=== PATIENT | female | born 1930 | race Caucasian/White ===

== ENCOUNTER 2016-11-19 18:35 | Inpatient (IN) | payer MEDICARE ==
[~2016-11-19] VITALS: Ht 165.1 cm; Wt 83.4 kg
[2016-11-19 20:19] VITALS: BP 138/73; PULSE 119; RESP 18; TEMP 98; O2SAT 95
[2016-11-19 22:51] LABS: BACTERIA, URINE RARE /hpf; BLOOD, URINE NEG (NEG); COMMENT (UR) CULT NOT INDICATED; CULTURE IF INDICATED CULT NOT INDICATED; GLUCOSE,URINE NEG (NEG); HYALINE CAST, URINE 42 /lpf (RARE); KETONE, URINE NEG (NEG); MUCUS URINE FEW /lpf (OCC); NITRITE,URINE NEG (NEG); PH, URINE 5.5 (5.0-8.5); RENAL EPITHELIAL CELLS <1 /hpf; SQUAMOUS EPITHELIAL CELL URINE 6 /hpf (0-5); URINE COLOR DARK-YELLOW (YELLW/STRAW)
[2016-11-20] VITALS (12 sets, daily range): BP systolic 113–155; BP diastolic 56–80; PULSE 98–155; RESP 17–20; TEMP 97.6–98.1; O2SAT 92–99
[2016-11-20 01:00] LABS: AUTOMATED NEUTROPHIL # 8.9 TH/MM3 (1.8-7.7); BASOPHIL # 0.1 TH/MM3 (0-0.2); BASOPHIL % 0.6 % (0.0-2.0); EOSINOPHIL # 0.1 TH/MM3 (0-0.4); EOSINOPHIL % 0.4 % (0.0-4.0); HEMATOCRIT 34.4 % (35.0-46.0); HEMO FLAGS DIFF FINAL; LYMPH % 17.2 % (9.0-44.0); LYMPHOCYTE # 2.2 TH/MM3 (1.0-4.8); MEAN CELL VOLUME 82.6 FL (80.0-100.0); MEAN CORPUSCULAR HEMOGLOBIN 27.3 PG (27.0-34.0); MEAN CORPUSCULAR HGB CONC 33.1 % (32.0-36.0); NEUT % 69.8 % (16.0-70.0); PLATELET COUNT 389 TH/MM3 (150-450); RED BLOOD COUNT 4.16 MIL/MM3 (4.00-5.30); RED CELL DISTRIBUTION WIDTH 16.2 % (11.6-17.2); WHITE BLOOD COUNT 12.7 TH/MM3 (4.0-11.0)
--- NOTE | 2016-11-20 01:24 | PD ---
HPI Chief Complaint: Psychiatric Symptoms Time Seen by Provider: 01:24 Travel History International Travel<30 days: No Contact w/Intl Traveler<30days: No Traveled to known affect area: No History of Present Illness HPI 86-year-old female came to the emergency room as a Arroyo act from [facility], rapid atrial fibrillation and biventricular lower extremity edema. Patient seems agitated and difficult to get history out of her. She threatened to kill herself by overdosing. Heart rate is in 120s to 130s. Patient has history of atrial fibrillation and is supposed to be on digoxin and Xarelto. Patient is denying any chest pain history. PFSH Past Medical History Narrative Medical List of her past medical history as reviewed from the nursing note. ?: Not Social History Tobacco Use: No Allergies-Medications (Allergen,Severity, Reaction): Coded Allergies: Penicillin (Verified Allergy, Unknown, 11/20/16) Comments List of allergies reviewed from the nursing note. Reported Meds & Prescriptions Reported Meds & Active Scripts Active Reported Xarelto (Rivaroxaban) 15 Mg Tab 15 Mg PO DAILY Simvastatin 10 Mg Tab 10 Mg PO DAILY Omeprazole 20 Mg Tab 20 Mg PO DAILY Nexium (Esomeprazole DR) 40 Mg Capdr 40 Mg PO DAILY Metoprolol Succinate ER 24 HR (Metoprolol Succinate) 25 Mg Tab 25 Mg PO TID Levothyroxine (Levothyroxine Sodium) 200 Mcg Tab 200 Mcg PO DAILY Furosemide 40 Mg Tab 40 Mg PO HS Digoxin 0.125 Mg Tab 0.125 Mg PO HS Benadryl Allergy (Diphenhydramine HCl) 25 Mg Tab 25 Mg PO Q6H PRN Amlodipine (Amlodipine Besylate) 5 Mg Tab 5 Mg PO DAILY Narrative Medication Rest of her home medications was reviewed by me. Review of Systems Except as stated in HPI: all other systems reviewed are Neg Physical Exam Narrative GENERAL: Awake, alert, elderly, agitated SKIN: Warm and dry. HEAD: Atraumatic. Normocephalic. EYES: Pupils equal and round. No scleral icterus. No injection or drainage. ENT: No nasal bleeding or discharge. Mucous membranes pink and moist. NECK: Trachea midline. No JVD. CARDIOVASCULAR: Irregularly irregular rhythm. Tachycardia. No murmur appreciated. RESPIRATORY: No accessory muscle use. Clear to auscultation. Breath sounds equal bilaterally. GASTROINTESTINAL: Abdomen soft, non-tender, nondistended. Hepatic and splenic margins not palpable. MUSCULOSKELETAL: No obvious deformities. No clubbing. No cyanosis. Bilateral pedal edema NEUROLOGICAL: Awake and alert. No obvious cranial nerve deficits. Motor grossly within normal limits. Normal speech. PSYCHIATRIC: Appropriate mood and affect; insight and judgment normal. Data Data Last Documented VS Vital Signs Date Time Temp Pulse Resp B/P Pulse Ox O2 Delivery O2 Flow Rate FiO2 11/20/16 03:00 104 18 113/64 97 Nasal Cannula 2 11/19/16 20:19 98.0 Orders Complete Blood Count With Diff (11/19/16 21:13) Comprehensive Metabolic Panel (11/19/16 21:13) Thyroid Stimulating Hormone (11/19/16 21:13) Urinalysis - C+S If Indicated (11/19/16 21:13) Drug Screen, Random Urine (11/19/16 21:13) Electrocardiogram (11/19/16 21:13) Alcohol (Ethanol) (11/19/16 21:13) Psych Screen (11/19/16 21:13) Diltiazem Inj (Cardizem Inj) (11/20/16 02:00) Diltiazem (Cardizem) (11/20/16 02:00) Digoxin (11/20/16 01:54) Calcium Gluconate Inj (Calcium Gluconate (11/20/16 02:00) Calcium Gluconate (Calcium Gluconate) (11/20/16 02:00) Metoprolol Tartrate Inj (Lopressor Inj) (11/20/16 02:30) Vital Signs (Adult) Q15MX4,Q4H (11/20/16 02:57) ^ Commercial Insurance Underwriter / Telemetry (11/20/16 02:57) Cardiac Rhythm SUSAN.Q8H (11/20/16 02:57) ^ Notify Dr: Other (11/20/16 02:57) Diltiazem Inj (Cardizem Inj) (11/20/16 03:00) Admit To Inpatient (11/20/16 ) Vital Signs (Adult) Q4H (11/20/16 03:13) Activity Oob With Assistance (11/20/16 03:13) ^ Commercial Insurance Underwriter / Telemetry .CONTINUOUS (11/20/16 03:13) Diet Heart Healthy (11/20/16 Breakfast) Sodium Chloride 0.9% Flush (Ns Flush) (11/20/16 03:15) Sodium Chloride 0.9% Flush (Ns Flush) (11/20/16 09:00) Complete Blood Count With Diff (11/21/16 06:00) Creatine Kinase (Cpk) (11/20/16 06:30) Creatine Kinase (Cpk) (11/20/16 12:30) Troponin I (11/20/16 06:30) Troponin I (11/20/16 12:30) Electrocardiogram (11/20/16 12:30) Pt Request For Service (11/20/16 03:13) Case Management Consult (11/20/16 03:13) Enoxaparin Inj (Lovenox Inj) (11/20/16 09:00) Naloxone Inj (Narcan Inj) (11/20/16 03:15) Inpatient Certification (11/20/16 ) Admit Order (Ed Use Only) (11/20/16 03:16) Labs Laboratory Tests Test 11/19/16 11/20/16 22:15 00:38 Urine Color DARK-YELLOW Urine Turbidity HAZY Urine pH 5.5 Urine Specific [place] 1.028 Urine Protein 30 mg/dL Urine Glucose (UA) NEG mg/dL Urine Ketones NEG mg/dL Urine Occult Blood NEG Urine Nitrite NEG Urine Bilirubin NEG Urine Urobilinogen 4.0 MG/DL Urine Leukocyte Esterase TRACE Urine RBC 2 /hpf Urine WBC 3 /hpf Urine Squamous Epithelial 6 /hpf Cells Urine Renal Epithelial Cells <1 /hpf Urine Bacteria RARE /hpf Urine Hyaline Casts 42 /lpf Urine Mucus FEW /lpf Microscopic Urinalysis Comment CULT NOT INDICATED Urine Opiates Screen NEG Urine Barbiturates Screen NEG Urine Amphetamines Screen NEG Urine Benzodiazepines Screen NEG Urine Cocaine Screen NEG Urine Cannabinoids Screen NEG White Blood Count 12.7 TH/MM3 Red Blood Count 4.16 MIL/MM3 Hemoglobin 11.4 GM/DL Hematocrit 34.4 % Mean Corpuscular Volume 82.6 FL Mean Corpuscular Hemoglobin 27.3 PG Mean Corpuscular Hemoglobin 33.1 % Concent Red Cell Distribution Width 16.2 % Platelet Count 389 TH/MM3 Mean Platelet Volume 8.0 FL Neutrophils (%) (Auto) 69.8 % Lymphocytes (%) (Auto) 17.2 % Monocytes (%) (Auto) 12.0 % Eosinophils (%) (Auto) 0.4 % Basophils (%) (Auto) 0.6 % Neutrophils # (Auto) 8.9 TH/MM3 Lymphocytes # (Auto) 2.2 TH/MM3 Monocytes # (Auto) 1.5 TH/MM3 Eosinophils # (Auto) 0.1 TH/MM3 Basophils # (Auto) 0.1 TH/MM3 CBC Comment DIFF FINAL Differential Comment Sodium Level 142 MEQ/L Potassium Level 4.0 MEQ/L Chloride Level 102 MEQ/L Carbon Dioxide Level 27.3 MEQ/L Anion Gap 13 MEQ/L Blood Urea Nitrogen 23 MG/DL Creatinine 1.19 MG/DL Estimat Glomerular Filtration 43 ML/MIN Rate Random Glucose 118 MG/DL Calcium Level 6.6 MG/DL Protein Corrected Calcium 6.7 MG/DL Total Bilirubin 0.8 MG/DL Aspartate Amino Transf 18 U/L (AST/SGOT) Alanine Aminotransferase 20 U/L (ALT/SGPT) Alkaline Phosphatase 105 U/L Total Protein 6.9 GM/DL Albumin 2.9 GM/DL Thyroid Stimulating Hormone 0.010 uIU/ML 3rd Gen Digoxin Level 1.2 NG/ML Ethyl Alcohol Level LESS THAN 3 MG/DL MDM Medical Decision Making Medical Screen Exam Complete: Yes Emergency Medical Condition: Yes Medical Record Reviewed: Yes Interpretation(s) Twelve-lead EKG was reviewed by me. Atrial fibrillation, normal axis, nonspecific ST-T wave changes, RVR, PVCs. Heart rate of 128 bpm. Differential Diagnosis Hypothyroidism, atrial fibrillation with RVR, electrolyte abnormalities Narrative Course 3:04 AM patient was given 20 mg of Cardizem bolus with which her heart rate transiently came down to the 90s and now has started to go up again. With initial bolus her blood pressure dropped to 88 systolic but that is slowly coming up as well. I've ordered a Cardizem drip at this point. Blood test results of back and patient has hypocalcemia which has been replaced and low TSH. Patient is taking Synthroid at home. Patient is not medically cleared at this point for psych evaluation. Awaiting for the hospitalist to call back for admission. Critical Care Narrative Aggregate critical care time was 30 minutes. Time to perform other separately billable procedures was not included in the critical care time. My time did not include minutes spent treating any other patients simultaneously or on activities that did not directly contribute to the patient's treatment. The services I provided to this patient were to treat and/or prevent clinically significant deterioration that could result in: A. fib, RVR, Cardizem bolus and drip I provided critical care services requiring my management, as noted below: Chart data review, documentation time, medication orders and management, vital sign assessments/reviewing monitor data, ordering and reviewing lab tests, ordering and interpreting/reviewing x-rays and diagnostic studies, care of the patient and discussion of the patient with the admitting physicians. Procedures EKG Prior to Arrival: Yes Diagnosis Primary Impression: Atrial fibrillation with RVR Additional Impressions: Suicidal ideation Hypocalcemia Hyperthyroidism Admitting Information Admitting Physician Requests: Admit Scripts Potassium Chloride ER 20 Meq Tab20 Meq PO DAILY #30 TAB Ref 0 Prov:Brandyn Mccurdy MD 11/22/16 Metoprolol Tartrate (Lopressor)50 Mg Tab50 Mg PO Q12HR #60 TAB Prov:Brandyn Mccurdy MD 11/22/16 Levothyroxine (Synthroid)125 Mcg [id number] Mcg PO DAILY@0600 #30 TAB Prov:Brandyn Mccurdy MD 11/22/16 Clonazepam (Klonopin)0.5 Mg Tab0.5 Mg PO Q12HR #60 TAB Prov:Brandyn Mccurdy MD 11/22/16 Cleveland Bradshaw MD Nov 20, 2016 01:24
[2016-11-20 01:26] LABS: ALKALINE PHOSPHATASE 105 U/L (45-117); ALT (GPT) 20 U/L (10-53); ANION GAP 13 MEQ/L (5-15); AST (GOT) 18 U/L (15-37); BICARBONATE 27.3 MEQ/L (21.0-32.0); BLOOD UREA NITROGEN 23 MG/DL (7-18); CHLORIDE 102 MEQ/L (98-107); GLOMERULAR FILTRATION RATE 43 ML/MIN (>89); SODIUM (NA) 142 MEQ/L (136-145); TOTAL BILIRUBIN ADULT 0.8 MG/DL (0.2-1.0)
[2016-11-20 01:28] LABS: CALCIUM-PROTEIN CORRECTED 6.7 MG/DL (8.5-10.1)
[2016-11-20] MEDS ORDERED: DILTIAZEM HCL 25 MG/5 ML VIAL IV ONE (02:00)
[2016-11-20] MEDS ORDERED: CALCIUM GLUCONATE 500 MG TAB PO ONE (02:00)
[2016-11-20] MEDS ORDERED: DILTIAZEM HCL 90 MG TAB PO ONE (02:00)
[2016-11-20] MEDS ORDERED: CALCIUM GLUCONATE 10% 1 GM/10 ML VIAL IV PUSH ONE ×2 (02:00→03:30)
[2016-11-20 02:21] LABS: AMPHETAMINE, URINE NEG (NEG); BARBITURATES, URINE NEG (NEG); COCAINE, URINE NEG (NEG)
[2016-11-20] MEDS ORDERED: METOPROLOL TARTRATE 5 MG/5 ML VIAL IV PUSH ONE (02:30)
[2016-11-20] MEDS ORDERED: NALOXONE HCL 0.4 MG/ML AMP IV PRN (03:15)
[2016-11-20] MEDS ORDERED: SODIUM CHLORIDE 0.9% FLUSH 5 ML FLUSH FLUSH PRN (03:15)
[2016-11-20] MEDS ORDERED: CALCIUM GLUCONATE INJ 1 GM in SODIUM CHLORIDE 0.9% INJ 100 ML IV ONE (03:30)
[2016-11-20] MEDS: DILTIAZEM INJ 125 MG in SODIUM CHLORIDE 0.9% INJ 100 ML IV SCH ×2 (04:20→15:56)
[2016-11-20 07:23] LABS: CREATINE KINASE 77 U/L (26-192)
[2016-11-20] MEDS ORDERED: ENOXAPARIN SODIUM 40 MG/0.4 ML SYRINGE SQ SCH (09:00)
--- NOTE | 2016-11-20 09:51 | HHI.HP ---
[facility] Service [place] [facility] Primary Care Physician Unknown Admission Diagnosis A. fib with RVR, hypocalcemia, hyperthyroidism Diagnoses: (1) Atrial fibrillation with RVR (2) Suicidal ideation (3) Hypocalcemia (4) Hyperthyroidism Chief Complaint: Atrial fibrillation with rapid ventricular response Travel History International Travel<30 Days: No Contact w/Intl Traveler <30 Da: No Traveled to Known Affected Are: No History of Present Illness 86-year-old female with a history of atrial fibrillation, brought to the ED from [facility] under Arroyo act secondary to suicidal ideation and agitation. Per EMR patient was threatening to kill herself by overdosing. However on arrival she was found to have heart rate in 120s to 130s and started on Cardizem drip secondary to A. fib with rapid ventricular response. although patient denied to me however she has not been taking her digoxin and Xarelto. He denies any chest pain or shortness of breath during my exam. Patient was alert and oriented 3 Review of Systems Other Other12 systems reviewed and are negative except for the one mentioned in the history of present illness Past Family Social History Past Medical History Atrial fibrillation Anxiety/Depression Allergies: Coded Allergies: Penicillin (Verified Allergy, Unknown, 11/20/16) Family History She denies any family history of heart disease Social History Patient denies tobacco, alcohol or illicit drug intake Physical Exam Vital Signs Vital Signs Date Time Temp Pulse Resp B/P Pulse Ox O2 Delivery O2 Flow Rate FiO2 11/20/16 07:04 98 18 142/67 96 Nasal Cannula 2 11/20/16 04:30 123 18 134/69 95 Nasal Cannula 2 11/20/16 04:00 113 18 133/80 95 Nasal Cannula 2 11/20/16 03:30 155 18 123/72 94 Nasal Cannula 2 11/20/16 03:00 104 18 113/64 97 Nasal Cannula 2 11/20/16 02:30 113 18 120/60 98 Nasal Cannula 2 11/20/16 02:00 121 18 126/56 94 Nasal Cannula 2 11/19/16 20:19 98.0 119 18 138/73 95 Physical Exam GENERAL: This is a well-nourished, well-developed patient, in no apparent distress. SKIN: No rashes, ecchymoses or lesions. Cool and dry. HEAD: Atraumatic. Normocephalic. No temporal or scalp tenderness. EYES: Pupils equal round and reactive. Extraocular motions intact. No scleral icterus. No injection or drainage. ENT: Nose without bleeding, purulent drainage or septal hematoma. Throat without erythema, tonsillar hypertrophy or exudate. Uvula midline. Airway patent. NECK: Trachea midline. No JVD or lymphadenopathy. Supple, nontender, no meningeal signs. CARDIOVASCULAR: Irregular Regular rate and rhythm with II/ MAGED RESPIRATORY: Clear to auscultation. Breath sounds equal bilaterally. No wheezes , rales, or rhonchi. GASTROINTESTINAL: Abdomen soft, non-tender, nondistended. No hepato-splenomegaly , or palpable masses. No guarding. MUSCULOSKELETAL: Extremities without clubbing, cyanosis, or edema. No joint tenderness, effusion, or edema noted. No calf tenderness. Negative Homans sign bilaterally. NEUROLOGICAL: Awake and alert. Cranial nerves II through XII intact. Motor and sensory grossly within normal limits. Five out of 5 muscle strength in all muscle groups. Normal speech. Laboratory Laboratory Tests Test 11/19/16 11/20/16 11/20/16 22:15 00:38 06:15 Urine Color DARK-YELLOW Urine Turbidity HAZY Urine pH 5.5 Urine Specific [place] 1.028 Urine Protein 30 Urine Glucose (UA) NEG Urine Ketones NEG Urine Occult Blood NEG Urine Nitrite NEG Urine Bilirubin NEG Urine Urobilinogen 4.0 Urine Leukocyte Esterase TRACE Urine RBC 2 Urine WBC 3 Urine Squamous Epithelial 6 Cells Urine Renal Epithelial Cells <1 Urine Bacteria RARE Urine Hyaline Casts 42 Urine Mucus FEW Microscopic Urinalysis Comment CULT NOT INDICATED Urine Opiates Screen NEG Urine Barbiturates Screen NEG Urine Amphetamines Screen NEG Urine Benzodiazepines Screen NEG Urine Cocaine Screen NEG Urine Cannabinoids Screen NEG White Blood Count 12.7 Red Blood Count 4.16 Hemoglobin 11.4 Hematocrit 34.4 Mean Corpuscular Volume 82.6 Mean Corpuscular Hemoglobin 27.3 Mean Corpuscular Hemoglobin 33.1 Concent Red Cell Distribution Width 16.2 Platelet Count 389 Mean Platelet Volume 8.0 Neutrophils (%) (Auto) 69.8 Lymphocytes (%) (Auto) 17.2 Monocytes (%) (Auto) 12.0 Eosinophils (%) (Auto) 0.4 Basophils (%) (Auto) 0.6 Neutrophils # (Auto) 8.9 Lymphocytes # (Auto) 2.2 Monocytes # (Auto) 1.5 Eosinophils # (Auto) 0.1 Basophils # (Auto) 0.1 CBC Comment DIFF FINAL Differential Comment Sodium Level 142 Potassium Level 4.0 Chloride Level 102 Carbon Dioxide Level 27.3 Anion Gap 13 Blood Urea Nitrogen 23 Creatinine 1.19 Estimat Glomerular Filtration 43 Rate Random Glucose 118 Calcium Level 6.6 Protein Corrected Calcium 6.7 Total Bilirubin 0.8 Aspartate Amino Transf 18 (AST/SGOT) Alanine Aminotransferase 20 (ALT/SGPT) Alkaline Phosphatase 105 Total Protein 6.9 Albumin 2.9 Thyroid Stimulating Hormone 0.010 3rd Gen Digoxin Level 1.2 Ethyl Alcohol Level LESS THAN 3 Total Creatine Kinase 77 Troponin I LESS THAN 0.02 Result Diagram: 11/20/16 0038 11/20/16 0038 Imaging Last Impressions Chest X-Ray 11/20/16 0000 Signed Impressions: Service Date/Time: Sunday, November 20, 2016 09:56 - CONCLUSION: Abnormal chest appearance. No comparisons. Tha Lopes MD Assessment and Plan Problem List: (1) Atrial fibrillation with RVR ICD Code: I48.91 Status: Acute (2) Suicidal ideation ICD Code: R45.851 Status: Acute (3) Hypocalcemia ICD Code: E83.51 Status: Acute (4) Hyperthyroidism ICD Code: E05.90 Status: Acute Assessment and Plan 86-year-old female with Atrial fibrillation rapid ventricular response: Likely secondary to noncompliance, Continue with ACS rule out per protocol with serial cardiac enzyme and EKG. TSH low and check free T4. Continue Cardizem drip and resume Xarelto and resume outpatient medications when the list is normal. Check 2-D echo Acute mood disorder: Currently Arroyo acted, consult psychiatry Mild acute renal failure: Prerenal, continue gentle IV fluid hydration and monitor BUN and creatinine. Avoid all nephrotoxic drugs Hypocalcemia: Replace electrolyte and monitor History of hypothyroidism: However the patient with low TSH will check free T4, likely will decrease Synthroid dose Leukocytosis: UA unremarkable, check chest x-ray and obtain blood culture. Treat accordingly Hyperlipidemia: Resume Pravachol Hypertension: Resume Norvasc, Lopressor DVT prophylaxis: Xarelto Code Status Full code Discussed Condition With Patient Physician Certification 2 Midnight Certification Type: Admission for Inpatient Services Order for Inpatient Services The services are ordered in accordance with Medicare regulations or non- Medicare payer requirements, as applicable. In the case of services not specified as inpatient-only, they are appropriately provided as inpatient services in accordance with the 2-midnight benchmark. Estimated LOS (days): 2 days is the estimated time the patient will need to remain in the hospital, assuming treatment plan goals are met and no additional complications. Post-Hospital Plan: Not yet determined Brandyn Mccurdy MD Nov 20, 2016 09:50
[2016-11-20] MEDS ORDERED: SODIUM CHLOR 0.9% 1000 ML INJ 1,000 ML IV SCH (10:00)
[2016-11-20] MEDS ORDERED: CALCIUM GLUCONATE INJ 1 GM in SODIUM CHLORIDE 0.9% INJ 90 ML IV ONE (10:00)
[2016-11-20] MEDS ORDERED: LEVO200T4 PO (10:10)
[2016-11-20] MEDS ORDERED: DIGO0.12 PO (10:10)
[2016-11-20] MEDS ORDERED: XARE15TA PO (10:10)
[2016-11-20] MEDS ORDERED: BENA25TA3 PO (10:10)
[2016-11-20] MEDS ORDERED: NEXI40CA PO (10:10)
[2016-11-20] MEDS ORDERED: OMEP20TA PO (10:10)
[2016-11-20] MEDS ORDERED: AMLO5TAB2 PO (10:10)
[2016-11-20] MEDS ORDERED: METO25TA6 PO (10:10)
[2016-11-20] MEDS ORDERED: SIMV10TA PO (10:10)
[2016-11-20] MEDS ORDERED: FURO40TA PO (10:10)
--- NOTE | 2016-11-20 10:26 | RADRPT ---
EXAM DATE/TIME: 11/20/2016 09:56 [place] COMPARISON: No previous studies available for comparison. INDICATIONS : Evaluate for Infiltrate. MEDICAL HISTORY : None. SURGICAL HISTORY : None. ENCOUNTER: Initial ACUITY: 1 day PAIN SCORE: 0/10 LOCATION: Bilateral chest FINDINGS: The right diaphragm is elevated. There appears to be mild hazy density in the lung bases. Heart size appears grossly normal. CONCLUSION: Abnormal chest appearance. No comparisons. Tha Lopes MD on November 20, 2016 at 10:23 Board Certified Radiologist. This report was verified electronically.
[2016-11-20] MEDS: SODIUM CHLORIDE 0.9% FLUSH 5 ML FLUSH FLUSH SCH ×2 (10:40→21:00)
--- NOTE | 2016-11-20 11:08 | EKG ---
Date Performed: 11/20/2016 Time Performed: 01:22:30 PTAGE: 86 years EKG: ATRIAL FIBRILLATION WITH RAPID VENTRICULAR RESPONSE WITH ABERRANT CONDUCTION OR VENTRICULAR PREMATURE COMPLEXES NONSPECIFIC ST & T-WAVE ABNORMALITY ABNORMAL RHYTHM ECG NO PREVIOUS TRACING DOCTOR: Yuval Burkett Interpretating Date/Time 11/20/2016 11:08:14
--- NOTE | 2016-11-20 12:18 | EKG ---
Date Performed: 11/20/2016 Time Performed: 11:47:31 PTAGE: 86 years EKG: ATRIAL FIBRILLATION WITH RAPID VENTRICULAR RESPONSE NONSPECIFIC ST & T-WAVE ABNORMALITY ABN ORMAL RHYTHM ECG PREVIOUS TRACING : 11/20/2016 01.22 DOCTOR: Yuval Burkett Interpretating Date/Time 11/20/2016 12:17:53
[2016-11-20] MEDS ORDERED: LORazepam 2 MG TAB PO STA (14:49)
--- NOTE | 2016-11-20 16:09 | PD.CONS ---
Provisional Diagnosis Admission Date Nov 20, 2016 at 03:17 [place] I. Adjustment disorder with disturbance of conduct History of Present Illness Service Psychiatry Consult Requested By Primary Care Physician Unknown HPI The patient is a 86-year-old woman, domicile with friends, , without any previous psychiatric history, and physical therapy hospitalizations , with a medical history of atrial fibrillation, brought to the ED from [facility] under Arroyo act secondary to suicidal ideation and agitation. Per EMR patient was threatening to kill herself by overdosing. However on arrival she was found to have heart rate in 120s to 130s and started on Cardizem drip secondary to A. fib with rapid ventricular response. Patient is admitted in the medical floor due to mild renal failure and hypercalcemia. Chart was reviewed, case discussed with nurse in charge and ER team, patient was sitting in the ER. On evaluation patient was found cooperative but angry, requesting to be transferred to another room "because I'd like to begin ERs because my anxiety increases", patient says that she has been continues anxiety since she is the ER. She denies she have voiced suicidal ideation, she says that she is 78 years old, she love life and she had never tried to commit suicide in the past. She says that she has been confronting problems with her friends which she lived with, but not to the point where she wants to kill herself. She denies depressive symptoms, denies anhedonia, denies hopelessness denies helplessness, denies suicidal and homicidal ideation. She denies perceptual disturbances, such as visual and auditory hallucination. She denies the use of alcohol and illicit drugs. Patient is fully oriented 3, no fluctuation of consciousness, attention deficit, or any other gross cognitive impairment observed. Review of Systems Constitutional: DENIES: Diaphoretic episodes, Fatigue, Fever, Weight gain, Weight loss, Chills, Dizziness, Change in appetite, Night Sweats Endocrine: DENIES: Abnorml menstrual pattern, Heat/cold intolerance, Polydipsia , Polyuria, Polyphagia Eyes: DENIES: Blurred vision, Diplopia, Eye inflammation, Eye pain, Vision loss , Photosensitivity, Double Vision Ears, nose, mouth, throat: DENIES: Tinnitus, Hearing loss, Vertigo, Nasal discharge, Oral lesions, Throat pain, Hoarseness, Ear Pain, Running Nose, Epistaxis, Sinus Pain, Toothache, Odynophagia Respiratory: DENIES: Apneas, Cough, Snoring, Wheezing, Hemoptysis, Sputum production, Shortness of breath Cardiovascular: COMPLAINS OF: Palpitations, DENIES: Chest pain, Syncope, Dyspnea on Exertion, PND, Lower Extremity Edema, Orthopnea, Claudication Gastrointestinal: DENIES: Abdominal pain, Black stools, Bloody stools, Constipation, Diarrhea, Nausea, Vomiting, Difficulty Swallowing, Anorexia Genitourinary: DENIES: Abnormal vaginal bleeding, Dysmenorrhea, Dyspareunia, Sexual dysfunction, Urinary frequency, Urinary incontinence, Urgency, Hematuria , Dysuria, Nocturia, Vaginal discharge Hematologic/lymphatic: DENIES: Bruising, Lymphadenopathy Immunologic/allergic: DENIES: Eczema, Urticaria Neurologic: DENIES: Abnormal gait, Headache, Localized weakness, Paresthesias, Seizures, Speech Problems, Tremor, Poor Balance Psychiatric: COMPLAINS OF: Anxiety Past Family Social History Coded Allergies: Penicillin (Verified Allergy, Unknown, 11/20/16) Reported Medications Rivaroxaban (Xarelto)15 Mg Tab15 Mg PO DAILY Ref 0 11/20/16 Simvastatin 10 Mg Tab10 Mg PO DAILY #30 TAB Ref 0 11/20/16 Omeprazole 20 Mg Tab20 Mg PO DAILY #30 TAB Ref 0 11/20/[address] (Nexium)40 Mg Capdr40 Mg PO DAILY Ref 0 11/20/16 Metoprolol Succinate ER 24 HR 25 Mg Tab25 Mg PO TID #30 TAB Ref 0 11/20/16 Levothyroxine 200 Mcg [id number] Mcg PO DAILY #30 TAB Ref 0 11/20/16 Furosemide 40 Mg Tab40 Mg PO HS #30 TAB Ref 0 11/20/16 Digoxin 0.125 Mg Tab0.125 Mg PO HS #30 TAB Ref 0 11/20/16 Diphenhydramine (Benadryl Allergy)25 Mg Tab25 Mg PO Q6H PRN (ALLERGIES) Ref 0 11/20/16 Amlodipine 5 Mg Tab5 Mg PO DAILY #30 TAB Ref 0 11/20/16 Current Medications Medications (Trade) Dose Ordered Sig/Luis Route Start Time Stop Time Status Last Admin (Cardizem Inj/NS Inj) 125 ml @ 0 mls/hr TITRATE IV 11/20/16 03:00 11/20/16 15:56 (NS Flush) 2 ml UNSCH PRN FLUSH 11/20/16 03:15 (NS Flush) 2 ml BID FLUSH 11/20/16 09:00 11/20/16 10:40 (Lovenox Inj) 40 mg Q24H SQ 11/20/16 09:00 11/20/16 10:40 Naloxone HCl 0.4 mg 0.4 mg UNSCH PRN IV 11/20/16 03:15 (NS 1000 ml Inj) 1,000 ml @ 70 mls/hr [id number] IV 11/20/16 10:00 11/20/16 12:34 (KlonoPIN) 0.5 mg Q12HR PO 11/20/16 21:00 Physical Exam Vital Signs Vital Signs Date Time Temp Pulse Resp B/P Pulse Ox O2 Delivery O2 Flow Rate FiO2 11/20/16 12:00 97.8 114 19 140/67 99 Room Air 11/20/16 07:04 2 Mental Status Examination Appearance Elderly woman, age appearing, angry, but mostly cooperative Speech: Unremarkable Orientation: x3 Memory: Impaired (describe) Thought Content: Unremarkable Hallucination Type: None Suicidal Ideation: No Previous Suicide Attempts: No Homicidal Ideation: No Judgement: WNL Affect: Irritable Mood: Angry Motor Activity: Normal gait Assessment & Plan Problem List: (1) Adjustment disorder with anxiety Assessment & Plan: On psychiatric evaluation the patient does not present any cognitive impairment, psychosis, depression, aggressive behavior or agitation, denies suicidal ideation, and does not require psychiatric admission at this moment. She does report situational anxiety secondary to the stress of being in the ER awaiting to be transferred. Patient seems to be an angry and demanding person, but this is to be part of her personality. Patient does not meet criteria for psychiatric admission at this moment. With treat her acute anxiety with Ativan 2 mg by mouth is stopped, and clonazepam 0.5 mg twice a day standing. Arroyo act will be lifted. ICD Code: F43.22 Assessment & Plan Estimated LOS: Chau Summers MD Nov 20, 2016 16:09
[2016-11-20 16:32] LABS: FREE T4 2.59 NG/DL (0.76-1.46)
[2016-11-20] MEDS: FUROSEMIDE 40 MG TAB PO SCH (21:27)
[2016-11-20] MEDS: clonazePAM 0.5 MG TAB PO SCH (21:27)
[2016-11-21] VITALS (7 sets, daily range): BP systolic 112–154; BP diastolic 53–72; PULSE 81–132; RESP 16–20; TEMP 97.4–98.8; O2SAT 91–97
[2016-11-21] MEDS: DILTIAZEM INJ 125 MG in SODIUM CHLORIDE 0.9% INJ 100 ML IV SCH (01:41)
[2016-11-21] MEDS ORDERED: LEVOTHYROXINE SODIUM 200 MCG TAB PO SCH (06:00)
--- NOTE | 2016-11-21 07:31 | MB ---
cc: HENRIQUE CAMPOS MD DATE OF CONSULTATION: 11/21/2016 HISTORY OF PRESENT ILLNESS This is an 86-year-old woman who apparently was brought to the hospital from [facility] under Ar[place]o Act secondary to suicidal ideation and agitation. According to the chart the patient was threatening to kill herself by overdosing. She apparently has a history of atrial fibrillation and on presentation to the emergency department was found to have atrial fib with a rapid ventricular response. The patient is a very poor historian. She is oriented to time and place. She only states that she feels fine. She really seems surprised when asked about cardiac history and previous medications, although on admission to hospital stated that she was taking digoxin and Xarelto. A digoxin level was 1.2 . In any event she has been started on a Cardizem drip and we have been asked to see her. PAST MEDICAL HISTORY Otherwise significant for hypertension. MEDICATIONS Her current medications in addition to IV diltiazem include: 1. Amlodipine 5 mg daily. 2. Xarelto 15 mg daily. 3. Pravastatin 20 mg daily. 4. Levothyroxine 200 mcg daily. 5. Klonopin 0.5 mg twice a day. 6. Lasix 40 mg at h.s. ALLERGIES PENICILLIN. SOCIAL HISTORY The patient denies smoking or drinking or using recreational drugs. PHYSICAL EXAMINATION VITAL SIGNS: Blood pressure is 120/60. Pulse is approximately 100 and irregular. LUNGS: Essentially clear. CARDIOVASCULAR: Irregularly irregular rhythm. There is no significant murmur noted. ABDOMEN: Soft, somewhat obese. There is no tenderness or organomegaly. EXTREMITIES: No edema. ASSESSMENT/RECOMMENDATION The patient has had atrial fibrillation with a rapid ventricular response. At this point in time will discontinue her IV Cardizem and begin her on a small dose of metoprolol twice a day. If blood pressure becomes a problem we can consider stopping her amlodipine. Will certainly continue her Xarelto. Henrique Campos MD DLW/BT /7:04 AM /7:19 AM
--- NOTE | 2016-11-21 08:34 | HHI.PR ---
Subjective Remarks Follow-up atrial fibrillation with rapid ventricular response/adjustment disorder with anxiety 11/21/16-patient seen and examined; Cardizem was discontinued by cardiology and patient now on by mouth increased dose Lopressor with rate control. Patient alert and oriented 3 appears stable was in for a friendly. Arroyo act was lifted yesterday by psychiatry Objective Vitals Vital Signs Date Time Temp Pulse Resp B/P Pulse Ox O2 Delivery O2 Flow Rate FiO2 11/21/16 04:00 97.4 104 20 112/53 93 11/21/16 00:00 97.6 89 20 117/58 93 11/20/16 20:00 97.6 116 17 143/64 94 11/20/16 18:45 98.0 115 20 155/67 92 11/20/16 17:51 94 17 134/61 96 11/20/16 16:32 98.1 104 17 140/64 97 Room Air 11/20/16 12:00 97.8 114 19 140/67 99 Room Air I/O 11/20/16 11/20/16 11/20/16 11/21/16 11/21/16 11/21/16 07:00 15:00 23:00 07:00 15:00 23:00 Intake Total 240 ml 360 ml Balance 240 ml 360 ml Intake Oral 240 ml 360 ml # Voids 4 3 # Bowel Movements 0 0 Result Diagram: 11/20/16 0038 11/20/16 0038 Imaging Last Impressions Chest X-Ray 11/20/16 0000 Signed Impressions: Service Date/Time: Sunday, November 20, 2016 09:56 - CONCLUSION: Abnormal chest appearance. No comparisons. Tha Lopes MD Objective Remarks GENERAL: NAD SKIN: Warm and dry. HEAD: Normocephalic. EYES: No scleral icterus. No injection or drainage. NECK: Supple, trachea midline. No JVD or lymphadenopathy. CARDIOVASCULAR: Regular rate and rhythm with II/ MAGED RESPIRATORY: Breath sounds equal bilaterally. No accessory muscle use. GASTROINTESTINAL: Abdomen soft, non-tender, nondistended. MUSCULOSKELETAL: No cyanosis, or edema. BACK: Nontender without obvious deformity. No CVA tenderness. A/P Problem List: (1) Atrial fibrillation with RVR ICD Code: I48.91 Status: Acute (2) Suicidal ideation ICD Code: R45.851 Status: Acute (3) Hypocalcemia ICD Code: E83.51 Status: Acute (4) Hypothyroidism ICD Code: E03.9 Status: Acute (5) Adjustment disorder with anxiety ICD Code: F43.22 Status: Acute Assessment and Plan 86-year-old female with Atrial fibrillation rapid ventricular response: Likely secondary to noncompliance, ACS ruled out per protocol with serial cardiac enzyme and EKG. s/ p Cardizem drip and currently on Lopressor 50 mg twice a day , Xarelto . Check 2-D echo Adjustment disorder with anxiety: Appreciate input from psychiatryCruz act was lifted 11/20/16. Currently stable on Klonopin 0.5 mg every 12 Mild acute renal failure: Prerenal, resolved with gentle IV fluid hydration and monitor BUN and creatinine. Avoid all nephrotoxic drugs. HLIV Hypocalcemia: We'll give calcium gluconate 2 g IV 1 now and start calcium 500 mg by mouth every 12 today at 2100 History of hypothyroidism: As patient with low TSH and elevated free T4 therefore will decrease Synthroid to 125 g daily starting today 11/21/16 Leukocytosis: Resolved. UA unremarkable, check chest x-ray noted. Hypertension: Currently on Lopressor 50 mg twice a day and Norvasc 5 mg daily Hyperlipidemia: Continue with Pravachol History of CHF: Unknown type pending 2-D echo, continue with Lasix 40 mg daily and consider potassium supplement DVT prophylaxis: Brandyn Rooney MD Nov 21, 2016 08:33
[2016-11-21 08:36] LABS: AUTOMATED NEUTROPHIL # 6.8 TH/MM3 (1.8-7.7); BASOPHIL % 0.2 % (0.0-2.0); EOSINOPHIL # 0.1 TH/MM3 (0-0.4); EOSINOPHIL % 0.9 % (0.0-4.0); HEMATOCRIT 29.7 % (35.0-46.0); HEMO FLAGS DIFF FINAL; LYMPH % 13.6 % (9.0-44.0); LYMPHOCYTE # 1.3 TH/MM3 (1.0-4.8); MEAN CELL VOLUME 82.9 FL (80.0-100.0); MEAN CORPUSCULAR HEMOGLOBIN 27.1 PG (27.0-34.0); MEAN CORPUSCULAR HGB CONC 32.7 % (32.0-36.0); MONO % 12.5 % (0.0-8.0); NEUT % 72.8 % (16.0-70.0); PLATELET COUNT 312 TH/MM3 (150-450); RED BLOOD COUNT 3.58 MIL/MM3 (4.00-5.30); RED CELL DISTRIBUTION WIDTH 16.4 % (11.6-17.2); WHITE BLOOD COUNT 9.4 TH/MM3 (4.0-11.0)
[2016-11-21] MEDS: SODIUM CHLORIDE 0.9% FLUSH 5 ML FLUSH FLUSH SCH ×2 (09:00→21:10)
[2016-11-21] MEDS: clonazePAM 0.5 MG TAB PO SCH ×2 (09:12→21:11)
[2016-11-21] MEDS: METOPROLOL TARTRATE 50 MG TAB PO SCH ×2 (09:12→21:11)
[2016-11-21] MEDS: PRAVASTATIN SOD 20 MG TAB PO SCH (09:12)
[2016-11-21] MEDS: RIVAROXABAN 15 MG TAB PO SCH (09:12)
[2016-11-21] MEDS: amLODIPine BESYLATE 5 MG TAB PO SCH (09:12)
[2016-11-21 09:17] LABS: BICARBONATE 28.2 MEQ/L (21.0-32.0); POTASSIUM 3.5 MEQ/L (3.5-5.1); TOTAL BILIRUBIN ADULT 0.7 MG/DL (0.2-1.0)
[2016-11-21 09:29] LABS: CALCIUM-PROTEIN CORRECTED 7.3 MG/DL (8.5-10.1)
[2016-11-21] MEDS ORDERED: CALCIUM GLUCONATE INJ 2 GM in SODIUM CHLORIDE 0.9% INJ 100 ML IV ONE (11:30)
--- NOTE | 2016-11-21 14:52 | PD.CARD.PN ---
Subjective Subjective Remarks No compalints. Apparently tolerating metoprolol well. HR 80-90. Will see prn Objective Vital Signs / I&O Vital Signs Date Time Temp Pulse Resp B/P Pulse Ox O2 Delivery O2 Flow Rate FiO2 11/21/16 04:00 97.4 104 20 112/53 93 11/21/16 00:00 97.6 89 20 117/58 93 11/20/16 20:00 97.6 116 17 143/64 94 11/20/16 18:45 98.0 115 20 155/67 92 11/20/16 17:51 94 17 134/61 96 11/20/16 16:32 98.1 104 17 140/64 97 Room Air I/O 11/20/16 11/20/16 11/20/16 11/21/16 11/21/16 11/21/16 06:59 14:59 22:59 06:59 14:59 22:59 Intake Total 240 ml 360 ml Balance 240 ml 360 ml Intake Oral 240 ml 360 ml # Voids 4 3 # Bowel Movements 0 0 Laboratory Laboratory Tests Test 11/20/16 11/21/16 15:38 08:03 Total Creatine Kinase 69 U/L Troponin I 0.02 NG/ML Free Thyroxine 2.59 NG/DL White Blood Count 9.4 TH/MM3 Red Blood Count 3.58 MIL/MM3 Hemoglobin 9.7 GM/DL Hematocrit 29.7 % Mean Corpuscular Volume 82.9 FL Mean Corpuscular Hemoglobin 27.1 PG Mean Corpuscular Hemoglobin 32.7 % Concent Red Cell Distribution Width 16.4 % Platelet Count 312 TH/MM3 Mean Platelet Volume 7.8 FL Neutrophils (%) (Auto) 72.8 % Lymphocytes (%) (Auto) 13.6 % Monocytes (%) (Auto) 12.5 % Eosinophils (%) (Auto) 0.9 % Basophils (%) (Auto) 0.2 % Neutrophils # (Auto) 6.8 TH/MM3 Lymphocytes # (Auto) 1.3 TH/MM3 Monocytes # (Auto) 1.2 TH/MM3 Eosinophils # (Auto) 0.1 TH/MM3 Basophils # (Auto) 0.0 TH/MM3 CBC Comment DIFF FINAL Differential Comment Sodium Level 143 MEQ/L Potassium Level 3.5 MEQ/L Chloride Level 104 MEQ/L Carbon Dioxide Level 28.2 MEQ/L Anion Gap 11 MEQ/L Blood Urea Nitrogen 18 MG/DL Creatinine 0.78 MG/DL Estimat Glomerular Filtration 70 ML/MIN Rate Random Glucose 96 MG/DL Calcium Level 6.6 MG/DL Protein Corrected Calcium 7.3 MG/DL Total Bilirubin 0.7 MG/DL Aspartate Amino Transf 12 U/L (AST/SGOT) Alanine Aminotransferase 15 U/L (ALT/SGPT) Alkaline Phosphatase 86 U/L Total Protein 5.7 GM/DL Albumin 2.5 GM/DL Henrique Lawler MD, FACC Nov 21, 2016 14:52
[2016-11-21] MEDS: CALCIUM CARBONATE 1.25 GM (CA 500 MG) TAB PO SCH (21:11)
[2016-11-21] MEDS: FUROSEMIDE 40 MG TAB PO SCH (21:11)
[2016-11-22] VITALS (8 sets, daily range): BP systolic 98–141; BP diastolic 56–86; PULSE 94–124; RESP 18–20; TEMP 97.8–98.5; O2SAT 88–95
[2016-11-22] MEDS: LEVOTHYROXINE SODIUM 125 MCG TAB PO SCH (05:39)
[2016-11-22] MEDS ORDERED: LEVOTHYROXINE SODIUM 200 MCG TAB PO SCH (06:00)
[2016-11-22 07:23] LABS: BICARBONATE 31.3 MEQ/L (21.0-32.0); POTASSIUM 3.4 MEQ/L (3.5-5.1)
[2016-11-22 07:35] LABS: CALCIUM-PROTEIN CORRECTED 7.9 MG/DL (8.5-10.1)
[2016-11-22] MEDS: SODIUM CHLORIDE 0.9% FLUSH 5 ML FLUSH FLUSH SCH ×2 (09:00→22:16)
[2016-11-22] MEDS: RIVAROXABAN 15 MG TAB PO SCH (09:12)
[2016-11-22] MEDS: amLODIPine BESYLATE 5 MG TAB PO SCH (09:12)
[2016-11-22] MEDS: PRAVASTATIN SOD 20 MG TAB PO SCH (09:12)
[2016-11-22] MEDS: clonazePAM 0.5 MG TAB PO SCH ×2 (09:12→22:14)
[2016-11-22] MEDS: CALCIUM CARBONATE 1.25 GM (CA 500 MG) TAB PO SCH ×2 (09:12→22:14)
[2016-11-22] MEDS: METOPROLOL TARTRATE 50 MG TAB PO SCH ×2 (09:12→22:14)
--- NOTE | 2016-11-22 09:36 | HHI.PR ---
Subjective Remarks Follow-up atrial fibrillation with rapid ventricular response/adjustment disorder with anxiety 11/21/16-patient seen and examined; Cardizem was discontinued by cardiology and patient now on by mouth increased dose Lopressor with rate control. Patient alert and oriented 3 appears stable was in for a friendly. Arroyo act was lifted yesterday by psychiatry 11/22/16-patient seen and examined, currently rate controlled. No acute event overnight denies any chest pain or shortness of breath. Looking for discharge to a SNF Objective Vitals Vital Signs Date Time Temp Pulse Resp B/P Pulse Ox O2 Delivery O2 Flow Rate FiO2 11/22/16 04:00 98.1 104 20 141/63 92 11/22/16 00:00 98.1 94 20 98/63 92 11/21/16 20:49 101 11/21/16 20:00 98.4 105 16 131/59 97 11/21/16 16:00 98.0 96 16 131/60 91 11/21/16 12:00 98.1 81 18 121/65 95 I/O 11/21/16 11/21/16 11/21/16 11/22/16 11/22/16 11/22/16 07:00 15:00 23:00 07:00 15:00 23:00 Intake Total 360 ml 360 ml 240 ml 240 ml Output Total 150 ml Balance 360 ml 210 ml 240 ml 240 ml Intake Oral 360 ml 360 ml 240 ml 240 ml Output Urine Total 150 ml # Voids 3 1 3 # Bowel Movements 0 1 0 1 Result Diagram: 11/21/16 0803 11/22/16 0604 Imaging Last Impressions Chest X-Ray 11/20/16 0000 Signed Impressions: Service Date/Time: Sunday, November 20, 2016 09:56 - CONCLUSION: Abnormal chest appearance. No comparisons. Tha Lopes MD Objective Remarks GENERAL: NAD SKIN: Warm and dry. HEAD: Normocephalic. EYES: No scleral icterus. No injection or drainage. NECK: Supple, trachea midline. No JVD or lymphadenopathy. CARDIOVASCULAR: Irregular Regular rate and rhythm with II/ MAGED RESPIRATORY: Breath sounds equal bilaterally. No accessory muscle use. GASTROINTESTINAL: Abdomen soft, non-tender, nondistended. MUSCULOSKELETAL: No cyanosis, or edema. BACK: Nontender without obvious deformity. No CVA tenderness. Procedures None A/P Problem List: (1) Atrial fibrillation with RVR ICD Code: I48.91 Status: Resolved (2) Suicidal ideation ICD Code: R45.851 Status: Resolved (3) Hypocalcemia ICD Code: E83.51 Status: Acute (4) Hypothyroidism ICD Code: E03.9 Status: Chronic (5) Adjustment disorder with anxiety ICD Code: F43.22 Status: Resolved Assessment and Plan 86-year-old female with Atrial fibrillation rapid ventricular response: Likely secondary to noncompliance, ACS ruled out per protocol with serial cardiac enzyme and EKG. s/ p Cardizem drip and currently rate control on Lopressor 50 mg twice a day , Xarelto . 2-D echo pending Adjustment disorder with anxiety: Appreciate input from psychiatry, Cruz act was lifted 11/20/16. Currently stable on Klonopin 0.5 mg every 12 Mild acute renal failure: Prerenal, resolved with gentle IV fluid hydration and monitor BUN and creatinine. Avoid all nephrotoxic drugs. HLIV Hypocalcemia: Improving with calcium gluconate 2 g IV 1 now and she knew calcium 500 mg by mouth every 12H Hypokalemia: Give potassium 60 mEq now and repeat BMP in a.m. History of hypothyroidism: As patient with low TSH and elevated free T4 therefore now on Synthroid 125 g daily as off 11/21/16 Leukocytosis: Resolved. UA unremarkable, check chest x-ray noted. Hypertension: Currently on Lopressor 50 mg twice a day and Norvasc 5 mg daily Hyperlipidemia: Continue with Pravachol History of CHF: Unknown type pending 2-D echo, continue with Lasix 40 mg daily and consider potassium supplement DVT prophylaxis: Brandyn Rooney MD Nov 22, 2016 09:36
--- NOTE | 2016-11-22 09:41 | HHI.DS ---
Discharge Summary Admission Date Nov 20, 2016 at 03:17 Discharge Date: Nov 22, 2016 Admitting Diagnosis A. fib with RVR, hypocalcemia, hyperthyroidism (1) Atrial fibrillation with RVR ICD Code: I48.91 (2) Suicidal ideation ICD Code: R45.851 (3) Hypocalcemia ICD Code: E83.51 (4) Hypothyroidism ICD Code: E03.9 (5) Adjustment disorder with anxiety ICD Code: F43.22 Procedures None Brief History - From Admission 86-year-old female with a history of atrial fibrillation, brought to the ED from [facility] under Arroyo act secondary to suicidal ideation and agitation. Per EMR patient was threatening to kill herself by overdosing. However on arrival she was found to have heart rate in 120s to 130s and started on Cardizem drip secondary to A. fib with rapid ventricular response. although patient denied to me however she has not been taking her digoxin and Xarelto. He denies any chest pain or shortness of breath during my exam. Patient was alert and oriented 3 CBC/BMP: 11/21/16 0803 11/22/16 0604 Significant Findings Laboratory Tests Test 11/19/16 11/20/16 11/20/16 11/20/16 22:15 00:38 06:15 15:38 Urine Color DARK-YELLOW (YELLW/STRAW) Urine Turbidity HAZY (CLEAR) Urine Protein 30 mg/dL (NEG-TRACE) Urine Urobilinogen 4.0 MG/DL (LESS THAN 2.0) Urine Leukocyte Esterase TRACE (NEG) Urine Bacteria RARE /hpf (NONE) Urine Mucus FEW /lpf (OCC) White Blood Count 12.7 TH/MM3 (4.0-11.0) Hemoglobin 11.4 GM/DL (11.6-15.3) Hematocrit 34.4 % (35.0-46.0) Monocytes (%) (Auto) 12.0 % (0.0-8.0) Neutrophils # (Auto) 8.9 TH/MM3 (1.8-7.7) Monocytes # (Auto) 1.5 TH/MM3 (0-0.9) Blood Urea Nitrogen 23 MG/DL (7-18) Creatinine 1.19 MG/DL (0.50-1.00) Estimat Glomerular Filtration 43 ML/MIN (>89) Rate Random Glucose 118 MG/DL (74-106) Calcium Level 6.6 MG/DL (8.5-10.1) Protein Corrected Calcium 6.7 MG/DL (8.5-10.1) Albumin 2.9 GM/DL (3.4-5.0) Thyroid Stimulating Hormone 0.010 uIU/ML 3rd Gen (0.358-3.740) Troponin I LESS THAN 0.02 NG/ML (0.02-0.05) Free Thyroxine 2.59 NG/DL (0.76-1.46) Test 11/21/16 11/22/16 08:03 06:04 Red Blood Count 3.58 MIL/MM3 (4.00-5.30) Hemoglobin 9.7 GM/DL (11.6-15.3) Hematocrit 29.7 % (35.0-46.0) Neutrophils (%) (Auto) 72.8 % (16.0-70.0) Monocytes (%) (Auto) 12.5 % (0.0-8.0) Monocytes # (Auto) 1.2 TH/MM3 (0-0.9) Estimat Glomerular Filtration 70 ML/MIN (>89) 69 ML/MIN (>89) Rate Calcium Level 6.6 MG/DL 7.2 MG/DL (8.5-10.1) (8.5-10.1) Protein Corrected Calcium 7.3 MG/DL 7.9 MG/DL (8.5-10.1) (8.5-10.1) Aspartate Amino Transf 12 U/L (15-37) (AST/SGOT) Total Protein 5.7 GM/DL 5.8 GM/DL (6.4-8.2) (6.4-8.2) Albumin 2.5 GM/DL (3.4-5.0) Potassium Level 3.4 MEQ/L (3.5-5.1) Imaging Last Impressions Chest X-Ray 11/20/16 0000 Signed Impressions: Service Date/Time: Sunday, November 20, 2016 09:56 - CONCLUSION: Abnormal chest appearance. No comparisons. Tha Lopes MD PE at Discharge GENERAL: NAD SKIN: Warm and dry. HEAD: Normocephalic. EYES: No scleral icterus. No injection or drainage. NECK: Supple, trachea midline. No JVD or lymphadenopathy. CARDIOVASCULAR: Irregular Regular rate and rhythm with II/ MAGED RESPIRATORY: Breath sounds equal bilaterally. No accessory muscle use. GASTROINTESTINAL: Abdomen soft, non-tender, nondistended. MUSCULOSKELETAL: No cyanosis, or edema. BACK: Nontender without obvious deformity. No CVA tenderness. Hospital Course Patient admitted secondary to atrial fibrillation with rapid ventricular response for which she was started on Cardizem drip and cardiology was consulted. Solution switch to increased dose of Lopressor after Cardizem drip will discontinue and continue on Xarelto as patient remained rate controlled. Secondary to adjustment disorder with anxiety, psychiatry was consulted and patient was started on Klonopin. Arroyo act was lifted. Her hospitalization her mood remained stable. Patient was treated for electrolyte abnormalities including hypocalcemia, hypokalemia . Her thyroid dose was decreased to 125 g daily secondary to elevated free T4 and significantly decrease TSH. Other chronic medications were continued. DVT and GI prophylaxis were provided. PT was consulted. Vitals remained stable prior to discharge Pt Condition on Discharge: Stable Discharge Disposition: Discharge to SNF Discharge Time: > 30 minutes Discharge Instructions DIET: Follow Instructions for: Heart Healthy Diet Activities you can perform: Regular-No Restrictions Follow up Referrals: Cardiology PCP Follow-up - 2-3 Days New Orders: FREE T4 - 6 Weeks TSH 3RD GEN - 6 Weeks New Medications: Potassium Chloride ER (Potassium Chloride ER) 20 Meq Tab 20 MEQ PO DAILY Electrolyte Replacement #30 Ref 0 TAB Clonazepam (Klonopin) 0.5 Mg Tab 0.5 MG PO Q12HR Control Mood Swing #60 TAB Levothyroxine (Synthroid) 125 Mcg Tab 125 MCG PO DAILY@0600 Thyroid Supplement #30 TAB Metoprolol Tartrate (Lopressor) 50 Mg Tab 50 MG PO Q12HR Blood Pressure Management #60 TAB Continued Medications: Amlodipine (Amlodipine) 5 Mg Tab 5 MG PO DAILY Blood Pressure Management #30 Ref 0 TAB Digoxin (Digoxin) 0.125 Mg Tab 0.125 MG PO HS Regulate Heart Beat #30 Ref [address] (Nexium) 40 Mg Capdr 40 MG PO DAILY Ref 0 CAP Furosemide (Furosemide) 40 Mg Tab 40 MG PO HS #30 Ref 0 TAB Rivaroxaban (Xarelto) 15 Mg Tab 15 MG PO DAILY Blood Clot Prevention Ref 0 TAB Simvastatin (Simvastatin) 10 Mg Tab 10 MG PO DAILY Cholesterol Management #30 Ref 0 TAB Discontinued Medications: Diphenhydramine (Benadryl Allergy) 25 Mg Tab 25 MG PO Q6H PRN ALLERGIES Ref 0 TAB Levothyroxine (Levothyroxine) 200 Mcg Tab 200 MCG PO DAILY Thyroid #30 Ref 0 TAB Metoprolol Succinate ER 24 HR (Metoprolol Succinate ER 24 HR) 25 Mg Tab 25 MG PO TID #30 Ref 0 TAB Omeprazole (Omeprazole) 20 Mg Tab 20 MG PO DAILY #30 Ref 0 TAB Brandyn Mccurdy MD Nov 22, 2016 09:41
[2016-11-22] MEDS ORDERED: LEVO.125 PO (09:44)
[2016-11-22] MEDS ORDERED: METO-309 PO (09:44)
[2016-11-22] MEDS ORDERED: CLON.5 PO (09:44)
[2016-11-22] MEDS ORDERED: POTA-163 PO (09:44)
[2016-11-22] MEDS ORDERED: POTASSIUM CHLORIDE 10 MEQ CONTROLLED RELEASE TAB PO ONE (10:00)
--- NOTE | 2016-11-22 17:53 | EC ---
Study Study Date:11/22/2016 STUDY CONCLUSIONS SUMMARY - Left ventricle: The cavity size was normal. Systolic function was normal. The estimated ejection fraction was in the range of 55% to 60%. - Aortic valve: Trace regurgitation. - Mitral valve: Mildly calcified annulus. Mild regurgitation. - Tricuspid valve: Mild regurgitation. - Pulmonary arteries: PA peak pressure: 32mm Hg (S). If LV function is below 40, please consider prescribing an ACEI or ARB or document rationale for non-use. PROCEDURE DATA STUDY STATUS: Elective. Procedure: Transthoracic echocardiography. Image quality was good. Scanning was performed from the parasternal, apical, and subcostal acoustic windows. Study completion: The patient tolerated the procedure well. Transthoracic echocardiography. M-mode, complete 2D, complete spectral Doppler, and color Doppler. Height: Height: 65in. Weight: Weight: 183.6lb. Body mass index: BMI: 30.6kg/m^2. Body surface area: BSA: 1.91m^2. Patient status: Inpatient. CARDIAC ANATOMY LEFT VENTRICLE: The cavity size was normal. Systolic function was normal. The estimated ejection fraction was in the range of 55% to 60%. AORTIC VALVE: The valve appears to be grossly normal. Doppler: There was no stenosis. Trace regurgitation. Valve area: 2.09cm^2(VTI). Indexed valve area: 1.09cm^2/m^2 (VTI). Valve area: 1.85cm^2 (Vmax). Indexed valve area: 0.97cm^2/m^2 (Vmax). Mean gradient: 3mm Hg (S). MITRAL VALVE: Mildly calcified annulus. Doppler: There was no evidence for stenosis. Mild regurgitation. Peak gradient: 4mm Hg (D). LEFT ATRIUM: The atrium was normal in size. PULMONIC VALVE: Not well visualized. Doppler: There was no evidence for stenosis. Trace regurgitation. TRICUSPID VALVE: The valve appears to be grossly normal. Doppler: There was no evidence for stenosis. Mild regurgitation. Patient weight: 183.6lb _Ejection fraction:_ 65-75% _Fractional shortening:_ 32% up to 5Kg 5-11.5Kg 11.6-22.9Kg 23-45Kg 45-57Kg Aortic Root 7-13 <17 13-22 17-27 17-27 LA diam 6-13 <23 24-38 33-47 37-40 RVID 10-17 7-15 7-15 7-18 8-17 LVIDd 12-22 <32 24-38 33-47 37-40 LVPW 2-4 3-6 5-7 6-8 7-8 IVS 2-4 3-6 5-7 6-8 7-8 BASIC MEASUREMENTS ADULT NORMAL Left ventricle LV internal dimension, ED, chordal *41.1 mm 43-52 level, PLAX LV internal dimension, ES, chordal 29.6 mm 23-38 level, PLAX Fractional shortening, chordal level, *28 % >29 PLAX LV posterior wall thickness, ED 10.5 mm IVS/LVPW ratio, ED 1.04 <1.3 Ventricular septum Septal thickness, ED 10.9 mm Aortic valve Leaflet separation 21 mm 15-26 Aorta Root diameter, ED 27 mm Left atrium Anterior-posterior dimension 35 mm Anterior-posterior dimension index 1.83 cm/m^2 <2.2 BASIC MEASUREMENTS ADULT NORMAL Aortic valve Leaflet separation 21 mm 15-26 DOPPLER MEASUREMENTS ADULT NORMAL Main pulmonary artery Pressure, S *32 mm Hg =30 Aortic valve Peak velocity, S 124 cm/s Mean velocity, S 83.2 cm/s VTI, S 19.1 cm Mean gradient, S 3 mm Hg Valve area, VTI 2.09 cm^2 Valve area index, VTI 1.09 cm^2/m^2 Valve area, Vmax 1.85 cm^2 Valve area index, Vmax 0.97 cm^2/m^2 Mitral valve Peak E-wave velocity 106 cm/s Peak gradient, D 4 mm Hg Tricuspid valve Regurgitant peak velocity 263 cm/s Peak RV-RA gradient, S 28 mm Hg Systemic veins Estimated CVP 5 mm Hg Right ventricle RV pressure, S *33 mm Hg <30 Pulmonic valve Peak velocity, S 38.3 cm/s LEGEND: Mean values are shown as u=mean value. Asterisk (*) nichols values outside specified normal range. Prepared and signed by Gareth Mirza [id number]
[2016-11-22] MEDS: FUROSEMIDE 40 MG TAB PO SCH (22:14)
[2016-11-23 01:44] VITALS: BP 120/79; PULSE 101; RESP 18; TEMP 97.8; O2SAT 95
[2016-11-23] MEDS: LEVOTHYROXINE SODIUM 125 MCG TAB PO SCH (06:00)
[2016-11-23 06:07] VITALS: BP 111/75; PULSE 100; RESP 20; TEMP 98; O2SAT 96
[2016-11-23] MEDS: SODIUM CHLORIDE 0.9% FLUSH 5 ML FLUSH FLUSH SCH (08:01)
[2016-11-23 08:04] VITALS: BP 126/71; PULSE 116; RESP 18; TEMP 98; O2SAT 92
[2016-11-23] MEDS: clonazePAM 0.5 MG TAB PO SCH (08:06)
[2016-11-23] MEDS: RIVAROXABAN 15 MG TAB PO SCH (08:07)
[2016-11-23] MEDS: amLODIPine BESYLATE 5 MG TAB PO SCH (08:07)
[2016-11-23] MEDS: METOPROLOL TARTRATE 50 MG TAB PO SCH (08:07)
[2016-11-23] MEDS: CALCIUM CARBONATE 1.25 GM (CA 500 MG) TAB PO SCH (08:07)
[2016-11-23] MEDS: PRAVASTATIN SOD 20 MG TAB PO SCH (08:07)
[2016-11-23 08:38] LABS: BICARBONATE 30.9 MEQ/L (21.0-32.0); POTASSIUM 4.1 MEQ/L (3.5-5.1)
[2016-11-23] MEDS ORDERED: POTASSIUM CHLORIDE 20 MEQ CONTROLLED RELEASE TAB PO SCH (09:00)
[2016-11-23 09:31] VITALS: PULSE 157
--- NOTE | 2016-11-23 09:40 | HHI.PR ---
Subjective Remarks Follow-up atrial fibrillation with rapid ventricular response/adjustment disorder with anxiety 11/21/16-patient seen and examined; Cardizem was discontinued by cardiology and patient now on by mouth increased dose Lopressor with rate control. Patient alert and oriented 3 appears stable was in for a friendly. Arroyo act was lifted yesterday by psychiatry 11/22/16-patient seen and examined, currently rate controlled. No acute event overnight denies any chest pain or shortness of breath. Looking for discharge to a SNF 11/23/16-patient seen and examined, no acute event overnight stable and no complaints Objective Vitals Vital Signs Date Time Temp Pulse Resp B/P Pulse Ox O2 Delivery O2 Flow Rate FiO2 11/23/16 09:31 157 11/23/16 08:04 98.0 116 18 126/71 92 11/23/16 06:07 98.0 100 20 111/75 96 11/23/16 01:44 97.8 101 18 120/79 95 11/22/16 20:40 Room Air 11/22/16 20:13 97.8 106 18 115/78 95 11/22/16 20:00 101 11/22/16 16:05 98.5 106 20 113/56 88 11/22/16 12:06 98.2 118 20 135/75 92 I/O 11/22/16 11/22/16 11/22/16 11/23/16 11/23/16 11/23/16 07:00 15:00 23:00 07:00 15:00 23:00 Intake Total 240 ml 480 ml 700 ml 480 ml Balance 240 ml 480 ml 700 ml 480 ml Intake Oral 240 ml 480 ml 700 ml IV Total 480 ml # Voids 3 4 # Bowel Movements 1 2 Result Diagram: 11/21/16 0803 11/23/16 0750 Imaging Last Impressions Chest X-Ray 11/20/16 0000 Signed Impressions: Service Date/Time: Sunday, November 20, 2016 09:56 - CONCLUSION: Abnormal chest appearance. No comparisons. Tha Lopes MD Objective Remarks GENERAL: NAD SKIN: Warm and dry. HEAD: Normocephalic. EYES: No scleral icterus. No injection or drainage. NECK: Supple, trachea midline. No JVD or lymphadenopathy. CARDIOVASCULAR: Irregular Regular rate and rhythm with II/ MAGED RESPIRATORY: Breath sounds equal bilaterally. No accessory muscle use. GASTROINTESTINAL: Abdomen soft, non-tender, nondistended. MUSCULOSKELETAL: No cyanosis, or edema. BACK: Nontender without obvious deformity. No CVA tenderness. Procedures None A/P Problem List: (1) Atrial fibrillation with RVR ICD Code: I48.91 Status: Resolved (2) Suicidal ideation ICD Code: R45.851 Status: Resolved (3) Hypocalcemia ICD Code: E83.51 Status: Acute (4) Hypothyroidism ICD Code: E03.9 Status: Chronic (5) Adjustment disorder with anxiety ICD Code: F43.22 Status: Resolved Assessment and Plan 86-year-old female with Atrial fibrillation rapid ventricular response: Likely secondary to noncompliance, ACS ruled out per protocol with serial cardiac enzyme and EKG. s/ p Cardizem drip and currently rate control on Lopressor 50 mg twice a day , Xarelto . 2-D echo with EF 55-60%. Will resume digoxin 0.125 mg at bedtime and monitor level Adjustment disorder with anxiety: Appreciate input from psychiatry, Cruz act was lifted 11/20/16. Currently stable on Klonopin 0.5 mg every 12 Mild acute renal failure: Prerenal, resolved with gentle IV fluid hydration and monitor BUN and creatinine. Avoid all nephrotoxic drugs. HLIV Hypocalcemia: Improving with calcium gluconate 2 g IV 1 now and she knew calcium 500 mg by mouth every 12H Hypokalemia: Give potassium 60 mEq now and repeat BMP in a.m. History of hypothyroidism: As patient with low TSH and elevated free T4 therefore now on Synthroid 125 g daily as off 11/21/16 Leukocytosis: Resolved. UA unremarkable, check chest x-ray noted. Hypertension: Currently on Lopressor 50 mg twice a day and Norvasc 5 mg daily Hyperlipidemia: Continue with Pravachol History of chronic diastolic CHF: 2-D echo with EF 55-60%, continue with Lasix 40 mg daily and consider potassium supplement DVT prophylaxis: Brandyn Rooney MD Nov 23, 2016 09:40
[2016-11-23] MEDS ORDERED: DIGOXIN 0.125 MG TAB PO SCH (21:00)
== END 2016-11-23 12:31 | DRG 309 ==
LOC: NEDAMB 18:35 → NEDA 11-20 03:17 → N04A 11-20 18:26
PROVIDERS: ADMIT Hospitalist; ATTEND Hospitalist
DX: I48.91 Unspecified atrial fibrillation (principal); R45.851 Suicidal ideations; N17.9 Acute kidney failure, unspecified; I50.32 Chronic diastolic (congestive) heart failure; E83.51 Hypocalcemia; F43.22 Adjustment disorder with anxiety; I10 Essential (primary) hypertension; E78.5 Hyperlipidemia, unspecified; D72.829 Elevated white blood cell count, unspecified; E03.9 Hypothyroidism, unspecified; F06.4 Anxiety disorder due to known physiological condition; E87.6 Hypokalemia; Z91.14 Patient's other noncompliance with medication regimen
CPT/HCPCS: 71010; 80048; 80053; 80162; 80307; 80320; 81001; 82550; 84155; 84439; 84443; 84484; 85025; 93005; 93306; 96374; 96375; J0610; J1650; J7030